=== PATIENT | female | born 1965 | race Caucasian/White ===

== ENCOUNTER 2018-02-02 19:10 | Inpatient (IN) | payer BC, OTHER ==
[2018-02-02] MEDS ORDERED: Nitroglycerin 2% OINT* 1 GM PAK TOPICAL ONE (19:46)
[2018-02-02] MEDS ORDERED: Diltiazem IV* 5 MG/ML 5 ML VIAL (for loading dose/IV Push) (25 MG) IV SLOW PU ONE (19:47)
--- NOTE | 2018-02-02 19:56 | RAD ---
Indication: Chest pain since last night. Comparison: November 02, 2015 Technique: Upright AP 1944 hours Report: Accounting for superimposed soft tissues the lungs and pleural spaces are clear. Negative for pneumothorax. Upper normal heart size accounting for portable AP technique. Unremarkable central pulmonary vasculature and mediastinal contours. IMPRESSION: No evidence for acute intrathoracic disease.
[2018-02-02 20:10] LABS: ABS Basophils 0.1 10^3/ul (0-0.2); ABS Eosinophils 0.2 10^3/ul (0-0.6); ABS Lymphocytes 2.2 10^3/ul (1.0-4.8); ABS Monocytes 0.5 10^3/ul (0-0.8); ABS Neutrophils 3.8 10^3/ul (1.5-7.7); ABS Nucleated RBC 0 10^3/ul; Eosinophil % 2.3 % (0-6); Hematocrit 39 % (35-47); Hemoglobin 13.6 g/dl (12.0-16.0); Lymphocyte % 32.3 % (25-47); Mean Corpuscular HGB Conc 35 g/dl (31-36); Mean Corpuscular Hemoglobin 31 pg (27-31); Mean Corpuscular Volume 88 fL (80-97); Mean Platelet Volume 7.8 um3 (7.4-10.4); Nucleated Red Blood Cells % 0.1; Platelet Count 273 10^3/ul (150-450); Red Blood Count 4.47 10^6/ul (4.0-5.4); Red Cell Distribution Width 14 % (10.5-15); White Blood Count 6.8 10^3/ul (3.5-10.8)
[2018-02-02 20:30] LABS: EGFR Non-African American 69.7 (>60)
[2018-02-02] MEDS ORDERED: Iohexol 350* (CONTRAST) 500 ML MDV IV ONE (20:38)
--- NOTE | 2018-02-02 21:25 | RAD ---
INDICATION: Chest pain radiating into the back. Evaluate aorta. COMPARISON: Chest radiograph of the same date. TECHNIQUE: Multidetector CT images were obtained from the lung apices to the ischial tuberosities with 129 mL Omnipaque 350 IV contrast. No oral contrast administered. Multiplanar reformation including maximum intensity projection and 3-D arterial volume rendering. CHEST REPORT: Negative for alveolar consolidation, focal pulmonary lesions, pleural effusions, pneumothorax. Negative for thoracic lymphadenopathy, cardiomegaly, or pericardial effusion. The thoracic aorta measures 3.0 cm at the root, 4.1 cm diameter at the ascending segment at the level of the main pulmonary artery, 4.2 cm at the proximal arch, 2.6 cm at the distal arch, and 2.1 cm at the distal descending segment. Negative for dissection of the thoracic aorta. Unremarkable main pulmonary arteries. Negative for thoracic fractures or suspicious focal osseous lesions. CHEST IMPRESSION: Mildly ectatic thoracic aorta measuring up to 4.2 cm maximum diameter at the proximal arch. Negative for dissection of the thoracic aorta. ABDOMEN PELVIS REPORT: Arterial phase of enhancement limits assessment of the abdominal viscera. Unremarkable liver, gallbladder, pancreas, spleen. Small splenule adjacent to the anterior inferior margin of the spleen. Negative for CT abnormality of the upper GI, small bowel, or infra cecal appendix. Unremarkable colon. Negative for ascites, free air, hernias. Normal adrenal glands. Unremarkable kidneys with symmetric arterial phase enhancement. No focal renal lesions or hydronephrosis. Unremarkable nondilated ureters and distended urinary bladder as well as the uterus and adnexal regions. Gas noted at the vaginal cuff. Negative for lymphadenopathy. Normal diameter abdominal aorta and iliac arteries. Negative for arterial dissection. Negative for stenosis of the visceral arteries. Physiologic distention of the IVC. Negative for retroperitoneal hematoma. Negative for lumbar sacral spine or pelvic fracture or suspicious focal osseous lesions. ABDOMEN PELVIS IMPRESSION: Negative for aneurysm or dissection of the abdominal aorta. No acute abdominal pelvic pathologic process evident.
--- NOTE | 2018-02-02 22:20 | HP ---
H&P (Free Text) History and Physical: PCP: Waldo Rosas MD Date/Time: 02/02/2018 0280 CC: chest pain HPI: Mrs Webster is a 52YO female HX HTN & morbid obesity who awoke last night around 0100 with chest pain, not certain if she awoke because of pain. She describes it as sharp across L & R chest anteriorly and radiating into the back. There were palpitations, but no SOB, N/V, sweats, or light-headedness. No cough, congestion, F/C, diarrhea, or other issues. The pain lasted ~3 hours before subsiding and letting her sleep. Upon awakening this AM, the discomfort was minimal, but present and continuous throughout the day. It was better sitting upright, worse lying supine. No history of similar. 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; full code status FamHx: Mother: passed at 76 w/ DM2; Father: alive at 77 w/ HTN; Brother: passed at 57 2nd CAD/CA w/ DM2 ROS: as above, otherwise reviewed and all were negative vitals: Vital Signs Temp 37.1 C 02/02/18 19:21 Pulse 90 02/02/18 21:03 Resp 16 02/02/18 20:30 BP 157/103 02/02/18 20:30 Pulse Ox 98 02/02/18 21:03 Intake & Output 02/01/18 02/02/18 02/02/18 23:59 11:59 23:59 Weight 120.202 kg Constitutional: NAD, normally developed, morbidly obese white female HEENM: atraumatic; sclera/conjunctiva: anicteric/clear; hearing: clinically intact; oropharynx: clear, mucosa moist Neck: soft tissue: non-tender; thyroid: normal Pulmonary: clear to auscultation bilaterally, good aeration, no accessory muscle use CV: RR/RR, normal S1S2, no carotid bruit, no jugular venous distention, 2+ B DP/ PT, no edema Abdominal: soft, non-distended, non-tender, no rebound/guarding/rigidity, normoactive bowel sounds, no hepatosplenomegaly or masses, no costovertebral angle tenderness Musculoskeletal: general: grossly intact, no tenderness to palpation Integumental: normal appearance and texture of exposed skin Psychiatric orientation: AA&O to PPS affect: calm mood: cooperative eye contact: good content: reliable responses: timely insight: fair Testing: Lab Results 02/02/18 02/02/18 02/02/18 Range/Units 19:57 19:57 19:57 WBC 6.8 (3.5-10.8) 10^3/ul RBC 4.47 (4.0-5.4) 10^6/ul Hgb 13.6 (12.0-16.0) g/dl Hct 39 (35-47) % MCV 88 (80-97) fL MCH 31 (27-31) pg MCHC 35 (31-36) g/dl RDW 14 (10.5-15) % Plt Count 273 (150-450) 10^3/ul MPV 7.8 (7.4-10.4) um3 Neut % (Auto) 56.3 (38-83) % Lymph % (Auto) 32.3 (25-47) % Logan % (Auto) 8.0 H (0-7) % Eos % (Auto) 2.3 (0-6) % Baso % (Auto) 1.1 (0-2) % Absolute Neuts (auto) 3.8 (1.5-7.7) 10^3/ul Absolute Lymphs (auto) 2.2 (1.0-4.8) 10^3/ul Absolute Monos (auto) 0.5 (0-0.8) 10^3/ul Absolute Eos (auto) 0.2 (0-0.6) 10^3/ul Absolute Basos (auto) 0.1 (0-0.2) 10^3/ul Absolute Nucleated RBC 0 10^3/ul Nucleated RBC % 0.1 Sodium 141 (139-145) mmol/L Potassium 3.6 (3.5-5.0) mmol/L Chloride 104 (101-111) mmol/L Carbon Dioxide 27 (22-32) mmol/L Anion Gap 10 (2-11) mmol/L BUN 19 (6-24) mg/dL Creatinine 0.85 (0.51-0.95) mg/dL Est GFR ( Amer) 89.6 (>60) Est GFR (Non-Af Amer) 69.7 (>60) BUN/Creatinine Ratio 22.4 H (8-20) Glucose 112 H (70-100) mg/dL Lactic Acid 1.7 (0.5-2.0) mmol/L Calcium 9.6 (8.6-10.3) mg/dL Total Bilirubin 0.30 (0.2-1.0) mg/dL AST 16 (13-39) U/L ALT 22 (7-52) U/L Alkaline Phosphatase 85 (34-104) U/L Troponin I 0.01 (<0.04) ng/mL Total Protein 6.7 (6.4-8.9) g/dL Albumin 4.0 (3.2-5.2) g/dL Globulin 2.7 (2-4) g/dL Albumin/Globulin Ratio 1.5 (1-3) ECG, personally reviewed: AFIB rate 131, no ischemia CXR, personally reviewed: IMPRESSION: No evidence for acute intrathoracic disease. CTA chest/abd/pel, personally reviewed: CHEST IMPRESSION: Mildly ectatic thoracic aorta measuring up to 4.2 cm maximum diameter at the proximal arch. Negative for dissection of the thoracic aorta. ABDOMEN PELVIS IMPRESSION: Negative for aneurysm or dissection of the abdominal aorta. No acute abdominal pelvic pathologic process evident. Impression: 52F HX HTN, morbid obesity presents with atypical chest pain for R/ O ACS & new onset AFIB/RVR DIAGNOSIS & PLAN Primary AFIB/RVR : currently in NSR : additional metoprolol IR 25mg x1 in ED : ECHO in AM to r/o valvular disease : [id number] 2, recommend long-term anticoagulation : heparin GTT : supportive care atypical chest pain : telemetry : trend troponin : aspirin : metoprolol : exercise NST in AM : consider cardiology consult in AM pending above results : supplemental oxygen Secondary HTN : continue metoprolol XL 50mg : hold clonidine OAB : continue daifenacin GERD : continue omeprazole allergic rhinitis : continue montelukast Admission Rational: observation for new onset AFIB/RVR & r/o ACS DVTp: heparin GTT Code Status: full HCP:
[2018-02-02] MEDS ORDERED: Aspirin 81 mg CHEW TAB* 81 MG TAB.CHEW PO ONE (23:00)
[2018-02-02] MEDS ORDERED: Heparin DRIP 25,000 UNITS(*) 25,000 UNITS/500 ML BAG IVPB SCH (23:00)
[2018-02-02] MEDS ORDERED: Ondansetron INJ* 2 MG/ML VIAL IV PRN (23:00)
[2018-02-02] MEDS ORDERED: CMCS: Melatonin (NF) 3 MG TAB PO PRN (23:00)
[2018-02-02] MEDS ORDERED: Metoprolol Tartrate TAB* 25 MG ONE (23:17)
[2018-02-02] MEDS: NS 0.9% 1000 ML* 1,000 ML IV SCH (23:48)
[2018-02-03 00:59] LABS: ABS Basophils 0.1 10^3/ul (0-0.2); ABS Eosinophils 0.2 10^3/ul (0-0.6); ABS Lymphocytes 2.4 10^3/ul (1.0-4.8); ABS Monocytes 0.6 10^3/ul (0-0.8); ABS Nucleated RBC 0 10^3/ul; Eosinophil % 2.2 % (0-6); Hematocrit 36 % (35-47); Hemoglobin 12.4 g/dl (12.0-16.0); Lymphocyte % 32.7 % (25-47); Mean Corpuscular HGB Conc 34 g/dl (31-36); Mean Corpuscular Hemoglobin 30 pg (27-31); Mean Corpuscular Volume 88 fL (80-97); Mean Platelet Volume 7.6 um3 (7.4-10.4); Nucleated Red Blood Cells % 0.1; Platelet Count 254 10^3/ul (150-450); Red Cell Distribution Width 14 % (10.5-15); White Blood Count 7.2 10^3/ul (3.5-10.8)
[2018-02-03] MEDS ORDERED: Heparin VIAL(*) 5000 UNITS/ML VIAL (FIVE THOUSAND) IV SCH (01:00)
[2018-02-03 01:17] LABS: INR 0.94 (0.77-1.02)
[2018-02-03 01:18] LABS: EGFR Non-African American 63.6 (>60)
[2018-02-03] MEDS ORDERED: Perflutren Lipid Microsphere* 3 ML VIAL ONE (07:54)
[2018-02-03] MEDS ORDERED: amLODIPine TAB* 5 MG PO ONE (08:52)
--- NOTE | 2018-02-03 08:56 | ECHO ---
Patient: KIZZY BARRAZA [facility] Rec#: [id number] : 1965 Date: 02/03/2018 Age: 52y Height: 170.18 cm / 67.0 in Weight: 120.2 kg / 264.9 lbs Sex: F BSA: 2.28 Room#: 453 Admit Date#: 02/02/2018 Type: Inpatient Referring: Evans Muir MD Reading: Jennifer Macias MD Monitor Tech: Elizabeth Williamson RDCS CC: Saray Rosas MD Transthoracic Echocardiogram Indication: Atrial fibrillation BP: 157/93 HR: 79 Rhythm: A-Fib Findings History: MO and HTN. Technical Comments: The study is technically difficult. The study is technically limited due to patient body habitus. Completed at 0840. Left Ventricle: The left ventricular chamber size is normal. Mild concentric left ventricular hypertrophy is observed. There is mildly decreased left ventricular systolic function. The estimated ejection fraction is 50-55%. TDS and limited. Endocardium not well visualized. Closer to 50%. The assessment of diastolic function is non-diagnostic. Left Atrium: The left atrium is moderately dilated. Right Ventricle: The right ventricle wall thickness is moderately increased. The right ventricular cavity size is normal. The right ventricular global systolic function is low normal. Right Atrium: The right atrium is moderately dilated. Aortic Valve: The aortic valve is trileaflet. There is no evidence of aortic valve thickening. There is no evidence of aortic regurgitation. There is no evidence of aortic stenosis. Mitral Valve: The mitral valve leaflets do not appear thickened. There is a trace of mitral regurgitation. There is no evidence of mitral stenosis. Tricuspid Valve: The tricuspid valve leaflets are normal. There is a physiologic tricuspid regurgitation. Unable to estimate the right ventricular systolic pressure. There is no tricuspid stenosis. Pulmonic Valve: The pulmonic valve structure is not well visualized. There is no evidence of pulmonic regurgitation. There is no pulmonic stenosis. Pericardium: There is no significant pericardial effusion. A pericardial fat pad is visualized. Aorta: There is no dilatation of the ascending aorta. There is no dilatation of the aortic arch. The aortic root is normal in size. Pulmonary Artery: The main pulmonary artery is not well visualized. Venous: The inferior vena cava appears normal in size. There is a greater than 50% respiratory change in the inferior vena cava dimension. Contrast: Definity was used to optimize study. 4 mL of diluted Definity was utilized. Intravenous contrast was used to enhance endocardial border definition. Summary: There was not any prior study for comparison. Conclusions The left ventricular chamber size is normal. Mild concentric left ventricular hypertrophy is observed. The estimated ejection fraction is 50-55%. TDS and limited. Endocardium not well visualized. Closer to 50%. The assessment of diastolic function is non-diagnostic. The left atrium is moderately dilated. The right atrium is moderately dilated. There is a trace of mitral regurgitation. There is a physiologic tricuspid regurgitation. Measurements Name Value Normal Range RVIDd (AP) 2D 3.3 cm (0.9 - 2.6) RVDdMajor (2D) 4.1 cm (2.2 - 4.4) RVAW (2D) 1 cm (0.2 - 0.5) RAd ISD 4CH 5.8 cm (3.4 - 4.9) RA (A4C)W 5 cm (2.9 - 4.6) IVSd (2D) 1.1 cm (0.6 - 1) LVPWd (2D) 1.1 cm (0.6 - 1) LVIDd (2D) 5.2 cm (3.6 - 5.4) LVIDs (2D) 3.6 cm - LV FS (2D) 31 % (25 - 45) Aortic Annulus 3.3 cm (1.4 - 2.6) Ao root diameter (2D) 2.1 cm (2.1 - 3.5) Ascending Ao 3.4 cm (2.1 - 3.4) Aortic arch 3 cm (1.8 - 3.4) LA dimension (AP) 2D 4.3 cm (2.3 - 3.8) LAd ISD 4CH 6.1 cm (2.9 - 5.3) LA ISD 4CH W 4.4 cm (2.5 - 4.5) Name Value Normal Range LA ESV SP 4CH (A/L) 91 ml - LA ESV SP 2CH (A/L) 100 ml - LA ESV BP (A/L) 99 ml - LA ESV BP (A/L) index 43 ml/m2 - LA ESV SP 4CH (MOD) 83 ml - LA ESV SP 2CH (MOD) 97 ml - Name Value Normal Range MV E-wave Vmax 0.76 m/sec - MV deceleration time 175.6 msec - MV A-wave Vmax 0.62 m/sec - MV E:A ratio 1.24 ratio - LV septal e' Vmax 0.05 m/sec - LV lateral e' Vmax 0.07 m/sec - LV E:e' septal ratio 15.2 ratio - LV E:e' lateral ratio 10.86 ratio - Name Value Normal Range AV Vmax 1.03 m/sec - AV VTI 22.93 cm - AV peak gradient 4.26 mmHg - AV mean gradient 2.5 mmHg - LVOT Vmax 0.94 m/sec - LVOT VTI 19.56 cm - LVOT peak gradient 3.56 mmHg - LVOT mean gradient 1.97 mmHg - MATTHEW Vmax 0.66 m/sec - Name Value Normal Range IVC diameter 2.1 cm - Name Value Normal Range PV Vmax 0.69 m/sec - PV peak gradient 1.97 mmHg -
[2018-02-03] MEDS ORDERED: Metoprolol Succinate XL TAB* 50 MG PO SCH (09:00)
[2018-02-03] MEDS ORDERED: Metoprolol Tartrate TAB* 25 MG ONE (11:49)
[2018-02-03] MEDS ORDERED: Metoprolol Tartrate IV* 1 MG/ML 5 ML VIAL IV PRN (12:48)
[2018-02-03] MEDS ORDERED: Metoprolol Tartrate IV* 1 MG/ML 5 ML VIAL ONE (12:51)
[2018-02-03] MEDS ORDERED: Labetalol IV* 5 MG/ML 20 ML VIAL IV PUSH PRN ×2 (12:52→15:37)
[2018-02-03] MEDS ORDERED: Labetalol IV* 5 MG/ML 20 ML VIAL ONE (12:55)
--- NOTE | 2018-02-03 13:17 | RAD ---
Edited for charges. INDICATION: Chest pain. COMPARISON: There are no prior studies available for comparison. Technique: A single day myocardial perfusion stress study was performed. Initially a resting study was performed. The patient was given an intravenous injection of 10.7 mCi of technetium 99m tetrofosmin and and the heart was imaged in multiple projections. The patient returned later in the day and under the direction of Dr. Thorpe, the patient was exercised to a peak heart rate of 145 beats per minute which was 87% of the maximum predicted heart rate. Subsequently the patient was given intravenous injection of 25.9 mCi of technetium 99m tetrofosmin and the heart was imaged in multiple projections. Images were reconstructed in the axial, sagittal and coronal planes and in a 3- D format. FINDINGS: There is mild diffuse decreased wall motion with more focal decreased wall motion at the cardiac apex. The left ventricular ejection fraction is calculated to be 56%. Review of the images demonstrates mild decreased activity in the anterior wall and apex which appears similar on the post exercise and resting images. No other focal abnormalities are seen. IMPRESSION: THERE IS MILD DECREASED WALL MOTION WHICH IS MOST PROMINENT AT THE CARDIAC APEX WITH MILD DECREASED ACTIVITY IN THE ANTERIOR WALL AND APEX ON BOTH THE POST EXERCISE AND RESTING IMAGES SUGGESTING THE POSSIBILITY OF AN INFARCT. THERE IS NO EVIDENCE FOR ISCHEMIA. ASSESSMENT: Low risk. Based on imaging criteria from ACC/AHA 2002 Guideline Update for the Management of Patients With Chronic Stable Angina Table 23. Noninvasive Risk Stratification. MTDD
[2018-02-03] MEDS: DARIFENACIN 7.5 MG PO SCH (14:15)
[2018-02-03] MEDS: Omeprazole CAP* 20 MG PO SCH (14:16)
[2018-02-03] MEDS: Docusate CAP* 100 MG PO SCH ×2 (14:16→20:36)
[2018-02-03] MEDS: Montelukast Sodium TAB* 10 MG PO SCH (14:16)
[2018-02-03] MEDS: NS 0.9% 1000 ML* 1,000 ML IV SCH (15:43)
--- NOTE | 2018-02-03 18:20 | PN ---
Subjective Date of Service: 02/03/18 Interval History: Patient seen and examined. Discussed stress results (low risk), but BP remains elevated. Responding to labetolol, asymptomatic. Denies chest pain, no SOB, no further complaints. Family at bedside. Objective Active Medications: Acetaminophen (Tylenol Tab*) 650 mg PO Q6H PRN PRN Reason: FEVER/PAIN Darifenacin (Enablex(Nf)) 7.5 mg PO DAILY [facility] Last Admin: 02/03/18 14:15 Dose: Not Given Docusate Sodium (Colace Cap*) 200 mg PO BID [facility] Last Admin: 02/03/18 14:16 Dose: Not Given Heparin Sodium (Porcine) (Heparin Vial(*)) 0 units IV .PER PROTOCOL [facility] PRN Reason: Protocol Last Admin: 02/03/18 00:29 Dose: 5,950 units Heparin Sodium/Dextrose (Heparin Drip 25,000 Units(*)) 25,000 units in 500 mls @ 0 mls/hr IVPB PER RATE [facility]; Per Protocol PRN Reason: Protocol Last Admin: 02/03/18 00:29 Dose: 26 mls/hr Sodium Chloride (Ns 0.9% 1000 Ml*) 1,000 mls @ 75 mls/hr IV PER RATE [facility] Last Admin: 02/03/18 15:43 Dose: 75 mls/hr Labetalol HCl (Trandate Iv*) 10 mg IV PUSH Q4H PRN PRN Reason: BLOOD PRESSURE Last Admin: 02/03/18 15:43 Dose: 10 mg Melatonin (Melatonin (Nf)) 3 mg PO BEDTIME PRN; Protocol PRN Reason: Sleep Metoprolol Succinate (Toprol Xl Tab*) 100 mg PO DAILY [facility] Montelukast Sodium (Singulair Tab*) 10 mg PO DAILY [facility] Last Admin: 02/03/18 14:16 Dose: Not Given Omeprazole (Prilosec Cap*) 20 mg PO DAILY [facility] Last Admin: 02/03/18 14:16 Dose: Not Given Ondansetron HCl (Zofran Inj*) 4 mg IV Q6H PRN PRN Reason: NAUSEA Vital Signs - 8 hr 02/03/18 02/03/18 02/03/18 12:47 13:48 15:09 Temperature 98.2 F Pulse Rate 81 Respiratory 14 Rate Blood Pressure 235/128 148/98 198/103 (mmHg) O2 Sat by Pulse 97 Oximetry 02/03/18 16:07 Temperature Pulse Rate 77 Respiratory Rate Blood Pressure 137/77 (mmHg) O2 Sat by Pulse Oximetry Oxygen Devices in Use Now: None Appearance: Alert, NAD Ears/Nose/Mouth/Throat: NL Teeth, Lips, Gums Neck: Trachea Midline Respiratory: Symmetrical Chest Expansion and Respiratory Effort, Clear to Auscultation Cardiovascular: NL Sounds; No Murmurs; No JVD, RRR, No Edema Extremities: No Edema Skin: No Rash or Ulcers Neurological: Alert and Oriented x 3, NL Sensation, NL Gait Nutrition: Taking PO's Result Diagrams: 02/03/18 00:54 02/03/18 00:54 Assess/Plan/Problems-Billing Assessment: - Patient Problems (1) Chest pain Code(s): R07.9 - CHEST PAIN, UNSPECIFIED SNOMED Code(s): 55934176 Comment: - Likley r/t hypertension and afib - Currently in RSR - Will stop heparin drip (2) Atrial fib/flutter, transient Code(s): MFO6654 - SNOMED Code(s): 837158256 Comment: - Resolved after cardizem push and drip - Will DC heparin - Will need to follow up outpatient with cardio (3) Accelerated hypertension Code(s): I10 - ESSENTIAL (PRIMARY) HYPERTENSION SNOMED Code(s): 87999350 Comment: - Increase BB tomorrow, had 50mg metoprolol today - Responding well to labetolol PRN rather than lopressor - Monitor tonight, may need med titration in the AM - May consult cardiology if any acute changes or if BP continues to be refractory Status and Disposition: Remain inpatient, likely dispo home tomorrow
[2018-02-03] MEDS: Acetaminophen TAB* 325 MG PO PRN (20:36)
[2018-02-03] MEDS ORDERED: Metoprolol Tartrate TAB* 25 MG PO ONE (23:02)
[2018-02-04] MEDS: Labetalol IV* 5 MG/ML 20 ML VIAL IV PUSH PRN ×2 (00:40→06:29)
[2018-02-04] MEDS: DARIFENACIN 7.5 MG PO SCH (07:58)
[2018-02-04] MEDS: Omeprazole CAP* 20 MG PO SCH (07:59)
[2018-02-04] MEDS: Docusate CAP* 100 MG PO SCH ×2 (07:59→19:54)
[2018-02-04] MEDS: Metoprolol Succinate XL TAB* 100 MG PO SCH (07:59)
[2018-02-04] MEDS: Montelukast Sodium TAB* 10 MG PO SCH (08:00)
[2018-02-04] MEDS: Hydrochlorothiazide TAB* 25 MG PO SCH (08:00)
--- NOTE | 2018-02-04 10:56 | ED ---
Eddi aLu Nilda, scribed for Judah Everett MD on 02/02/18 at 1951 . HPI Chest Pain - HPI Summary HPI Summary: This patient is a 52 year old F BIBA accompanied by family with a chief complaint of waking up with constant CP that radiated to back at 0100 this morning. Pt states she thought she had GERD because of having [place] food at noon the previous day. Pt went to [address] [place] [address] and was found to have new onset A- fib, per triage note. The patient rates the dull pain 1/10 in severity. Symptoms aggravated and alleviated by nothing. Patient denies SOB and cough. Pt states shes been on menopause for the past 2 years. Pt notes she was given aspirin in EMS (1) and clinic (4) [employer]. - History of Current Complaint Chief Complaint: EDChestPainROMI Time Seen by Provider: 02/02/18 19:25 Hx Obtained From: Patient Hx Last Menstrual Period: 08/2015 Onset/Duration: Started Hours Ago, Still Present Timing: Constant Current Severity: Mild Pain Intensity: 1 Pain Scale Used: 0-10 Numeric Chest Pain Location: Diffuse Chest Pain Radiates: Yes Chest Pain Radiates To:: Back Character: Dull/Aching Aggravating Factor(s): Nothing Alleviating Factor(s): Nothing Associated Signs and Symptoms: Positive: Other: - CP; negative SOB and cough - Allergy/Home Medications Allergies/Adverse Reactions: Allergies Allergy/AdvReac Type Severity Reaction Status Date / Time No Known Allergies Allergy Verified 11/02/15 16:11 Home Medications: Home Medications Darifenacin(NF) [Enablex(NF)] 7.5 mg PO DAILY 02/02/18 [History Confirmed ] Metoprolol Tartrate TAB* [Lopressor TAB*] 50 mg PO DAILY 02/02/18 [History Confirmed 02/02/18] Montelukast Sodium TAB* [Singulair TAB*] 10 mg PO DAILY 02/02/18 [History Confirmed 02/02/18] Omeprazole CAP* [Prilosec CAP* 20 MG] 20 mg PO DAILY 02/02/18 [History Confirmed 02/02/18] cloNIDine TAB* [Catapres 0.1 MG TAB*] 0.1 mg PO DAILY 02/02/18 [History Confirmed 02/02/18] PMH/Surg Hx/FS Hx/Imm Hx Cardiovascular History: Reports: Hx Hypertension Sensory History: Denies: Hx Legally Blind Infectious Disease History: No Infectious Disease History: Denies: Traveled Outside the [place] in Last 30 Days - Family History Known Family History: Positive: Cardiac Disease - [place] brother age 57 y.o, Diabetes, Other - cancer - Social History Alcohol Use: Occasionally Substance Use Type: Reports: None Hx Tobacco Use: No Smoking Status (MU): Never Smoked Tobacco Review of Systems Negative: Fever, Chills Negative: Erythema Negative: Sore Throat Positive: Chest Pain - radiates to back Negative: Shortness Of Breath, Cough Negative: Abdominal Pain, Vomiting, Nausea Negative: dysuria, hematuria Negative: Myalgia, Edema Negative: Rash Neurological: Other - negative dizziness All Other Systems Reviewed And Are Negative: Yes Physical Exam - Summary Physical Exam Summary: Constitutional: Well-developed, Well-nourished, Alert. (-) Distressed Skin: Warm, Dry HENT: Normocephalic; Atraumatic Eyes: Conjunctiva normal Neck: Musculoskeletal ROM normal neck. (-) JVD, (-) Stridor, (-) Tracheal deviation Cardio: Rapid irregular hearbeat. Heart sounds normal; Intact distal pulses; The pedal pulses are 2+ and symmetric. Radial pulses are 2+ and symmetric. (-) Murmur Pulmonary/Chest wall: Effort normal. (-) Respiratory distress, (-) Wheezes, (-) Rales Abd: Soft, (-) Tenderness, (-) Distension, (-) Guarding, (-) Rebound Musculoskeletal: (-) Edema Lymph: (-) Cervical adenopathy Neuro: Alert, Oriented x3 Psych: Mood and affect Normal Triage Information Reviewed: Yes Vital Signs On Initial Exam: Initial Vitals Temp Pulse Resp BP Pulse Ox 98.8 F 128 18 173/137 96 02/02/18 19:21 02/02/18 19:21 02/02/18 19:21 02/02/18 19:21 02/02/18 19:21 Vital Signs Reviewed: Yes Diagnostics - Vital Signs Vital Signs Temp Pulse Resp BP Pulse Ox 02/02/18 19:21 98.8 F 128 18 173/137 96 - Laboratory Result Diagrams: 02/02/18 19:57 02/02/18 19:57 Lab Statement: Any lab studies that have been ordered have been reviewed, and results considered in the medical decision making process. - Radiology CXR Radiology Interpretation Completed By: Radiologist - CXR, per radiologist, reveals no evidence for acute intrathoracic disease. Dr. Everett has reviewed this radiology report. - CT CTA Chest/Abd/Pel CT Interpretation Completed By: Radiologist - Mildly ectatic thoracic aorta measuring up to 4.2 cm maximum diameter at the proximal arch. Negative for dissection of the thoracic aorta. Negative for aneurysm or dissection of the abdominal aorta. No acute abdominal pelvic pathologic process evident. Dr. Everett has reviewed this report. - EKG 1920 Cardiac Rate: Other Rate - 131 bpm EKG Rhythm: Atrial Fibrillation EKG Interpretation: RVR, no STEMI Chest Pain Course/Dx - Course Assessment/Plan: This patient is a 52 year old F BIBA accompanied by family with a chief complaint of waking up with constant CP that radiated to back at 0100 this morning. Pt states she thought she had GERD because of having [place] food at noon the previous day. Pt went to [address] [place] [address] and was found to have new onset A-fib, per triage note. The patient rates the dull pain 1/10 in severity. Symptoms aggravated and alleviated by nothing. Patient denies SOB and cough. Pt states shes been on menopause for the past 2 years. Pt notes she was given aspirin in EMS (1) and clinic (4). An EKG reveals A-fib, 131 bpm, no STEMI, and RVR. CXR, per radiologist, reveals no evidence for acute intrathoracic disease. Dr. Everett has reviewed this radiology report. CTA Chest/Abd/Pel, per radiologist, reveals Mildly ectatic thoracic aorta measuring up to 4.2 cm maximum diameter at. the proximal arch. Negative for dissection of the thoracic aorta. Negative for aneurysm or dissection of the abdominal aorta. No. acute abdominal pelvic pathologic process evident. Dr. Everett has reviewed this report. [8] Dr. Muir (hospitalist) agrees to admit pt. Pt is stable and will be admitted with Dx of CP unspecified and A-Fib with RVR. Pt understands and is agreeable with this plan. - Diagnoses Provider Diagnoses: Chest pain, unspecified, Atrial fibrillation with RVR - Provider Notifications Discussed Care Of Patient With: Evans Muir - hospitalist Time Discussed With Above Provider: 20:58 Instructed by Provider To: Admit As Inpatient Discharge - Sign-Out/Discharge Documenting (check all that apply): Discharge - admit - Discharge Plan Condition: Stable Disposition: ADMITTED TO [facility] Referrals: Saray Rosas MD [Primary Care Provider] - The documentation as recorded by the Eddi barreto Nilda accurately reflects the service I personally performed and the decisions made by , Judah Everett MD.
[2018-02-04] MEDS: Acetaminophen TAB* 325 MG PO PRN (11:21)
[2018-02-04] MEDS ORDERED: Valsartan TAB* 40 MG PO ONE (11:24)
[2018-02-04] MEDS ORDERED: Valsartan TAB* 80 MG ONE (11:33)
[2018-02-04] MEDS ORDERED: hydrALAZINE IV* 20 MG/ML VIAL ONE (11:33)
[2018-02-04] MEDS: hydrALAZINE IV* 20 MG/ML VIAL IV SLOW PU PRN ×2 (11:39→19:55)
--- NOTE | 2018-02-04 11:57 | PN ---
Subjective Date of Service: 02/04/18 Interval History: Patient seen and examined. BP was initially improved last night with a reading of 137/77, however she is having rebound HTN today with mild headache. Denies SOB, no chest pain, no afib. No further complaints. Objective Active Medications: Acetaminophen (Tylenol Tab*) 650 mg PO Q6H PRN PRN Reason: FEVER/PAIN Last Admin: 02/04/18 11:21 Dose: 650 mg Darifenacin (Enablex(Nf)) 7.5 mg PO DAILY [facility] Last Admin: 02/04/18 07:58 Dose: Not Given Docusate Sodium (Colace Cap*) 200 mg PO BID [facility] Last Admin: 02/04/18 07:59 Dose: 200 mg Hydralazine HCl (Apresoline Iv*) 5 mg IV SLOW PU Q6H PRN PRN Reason: SBP>170 or DBP>90 Last Admin: 02/04/18 11:39 Dose: 5 mg Hydrochlorothiazide (Hydrodiuril Tab*) 12.5 mg PO DAILY [facility] Last Admin: 02/04/18 08:00 Dose: 12.5 mg Melatonin (Melatonin (Nf)) 3 mg PO BEDTIME PRN; Protocol PRN Reason: Sleep Metoprolol Succinate (Toprol Xl Tab*) 100 mg PO DAILY [facility] Last Admin: 02/04/18 07:59 Dose: 100 mg Montelukast Sodium (Singulair Tab*) 10 mg PO DAILY [facility] Last Admin: 02/04/18 08:00 Dose: 10 mg Omeprazole (Prilosec Cap*) 20 mg PO DAILY [facility] Last Admin: 02/04/18 07:59 Dose: 20 mg Ondansetron HCl (Zofran Inj*) 4 mg IV Q6H PRN PRN Reason: NAUSEA Vital Signs - 8 hr 02/04/18 02/04/18 02/04/18 04:02 06:30 07:26 Temperature 97.5 F 98.5 F Pulse Rate 76 93 72 Respiratory 16 18 Rate Blood Pressure 179/97 216/119 162/99 (mmHg) O2 Sat by Pulse 98 94 Oximetry 02/04/18 02/04/18 02/04/18 08:00 08:31 08:47 Temperature 97.6 F Pulse Rate 72 Respiratory 16 17 Rate Blood Pressure 177/116 (mmHg) O2 Sat by Pulse 94 97 Oximetry 02/04/18 02/04/18 02/04/18 09:30 10:52 10:59 Temperature 97.1 F 97.7 F Pulse Rate 76 Respiratory 16 18 Rate Blood Pressure 146/98 172/123 190/112 (mmHg) O2 Sat by Pulse 100 Oximetry Oxygen Devices in Use Now: None Appearance: Alert, NAD Eyes: No Scleral Icterus, PERRLA Ears/Nose/Mouth/Throat: NL Teeth, Lips, Gums, Mucous Membranes Moist Neck: NL Appearance and Movements; NL JVP, Trachea Midline Respiratory: Symmetrical Chest Expansion and Respiratory Effort, Clear to Auscultation Cardiovascular: NL Sounds; No Murmurs; No JVD, RRR, No Edema Neurological: Alert and Oriented x 3, NL Gait Nutrition: Taking PO's Result Diagrams: 02/03/18 00:54 02/03/18 00:54 Assess/Plan/Problems-Billing Assessment: This is a 52 year old female that presented to ER with chest pain and transient afib, with low risk stress test but labile, peristent hypertensive urgency - Patient Problems (1) Chest pain Code(s): R07.9 - CHEST PAIN, UNSPECIFIED SNOMED Code(s): 00314710 Comment: - Resolved - Likley r/t hypertension and afib - Currently in RSR (2) Atrial fib/flutter, transient Code(s): LTO1772 - SNOMED Code(s): 569094696 Comment: - Resolved after cardizem push and drip - Will DC heparin - Will need to follow up outpatient with cardio (3) Accelerated hypertension Code(s): I10 - ESSENTIAL (PRIMARY) HYPERTENSION SNOMED Code(s): 13126605 Comment: - Initially responded well to labetolol overnight with increase in metoprolol dose this AM, then had rebound again - Discussed with Dr. Apodaca, recommending ARB and hydralazine - May be renal component? - Continue to watch closely Status and Disposition: Remain inpatient,for medication titration and stabilization.
[2018-02-04] MEDS ORDERED: cloNIDine TAB* 0.1 MG PO ONE (14:07)
[2018-02-05] MEDS: hydrALAZINE IV* 20 MG/ML VIAL IV SLOW PU PRN ×3 (01:17→19:38)
[2018-02-05] MEDS: Metoprolol Succinate XL TAB* 100 MG PO SCH (09:19)
[2018-02-05] MEDS: Montelukast Sodium TAB* 10 MG PO SCH (09:19)
[2018-02-05] MEDS: DARIFENACIN 7.5 MG PO SCH (09:20)
[2018-02-05] MEDS: Docusate CAP* 100 MG PO SCH ×2 (09:20→19:37)
[2018-02-05] MEDS: Hydrochlorothiazide TAB* 25 MG PO SCH (09:20)
[2018-02-05] MEDS: Omeprazole CAP* 20 MG PO SCH (09:38)
[2018-02-05] MEDS: amLODIPine TAB* 5 MG PO SCH (11:45)
[2018-02-05] MEDS ORDERED: Potassium Chloride LIQUID* 20 MEQ PACKET PO ONE (14:53)
[2018-02-05] MEDS ORDERED: amLODIPine TAB* 5 MG PO ONE (15:00)
--- NOTE | 2018-02-05 15:42 | PN ---
Subjective Date of Service: 02/05/18 Interval History: Patient seen and examined. Remains hypertensive. c/o headache on and off since yesterday. Denies chest pain, no SOB, no n/v. Objective Active Medications: Acetaminophen (Tylenol Tab*) 650 mg PO Q6H PRN PRN Reason: FEVER/PAIN Last Admin: 02/04/18 11:21 Dose: 650 mg Amlodipine Besylate (Norvasc Tab*) 5 mg PO DAILY [facility] Last Admin: 02/05/18 11:45 Dose: 5 mg Aspirin (Aspirin 81 Mg Chew Tab*) 81 mg PO DAILY [facility] Darifenacin (Enablex(Nf)) 7.5 mg PO DAILY [facility] Last Admin: 02/05/18 09:20 Dose: Not Given Docusate Sodium (Colace Cap*) 200 mg PO BID [facility] Last Admin: 02/05/18 09:20 Dose: Not Given Hydralazine HCl (Apresoline Iv*) 5 mg IV SLOW PU Q6H PRN PRN Reason: SBP>170 or DBP>90 Last Admin: 02/05/18 11:46 Dose: 5 mg Melatonin (Melatonin (Nf)) 3 mg PO BEDTIME PRN; Protocol PRN Reason: Sleep Metoprolol Succinate (Toprol Xl Tab*) 25 mg PO BID [facility] Montelukast Sodium (Singulair Tab*) 10 mg PO DAILY [facility] Last Admin: 02/05/18 09:19 Dose: 10 mg Omeprazole (Prilosec Cap*) 20 mg PO DAILY [facility] Last Admin: 02/05/18 09:38 Dose: 20 mg Ondansetron HCl (Zofran Inj*) 4 mg IV Q6H PRN PRN Reason: NAUSEA Spironolactone (Aldactone Tab*) 25 mg PO DAILY [facility] Vital Signs - 8 hr 02/05/18 02/05/18 02/05/18 07:44 08:00 11:12 Temperature 97.8 F 97.8 F Pulse Rate 68 72 Respiratory 18 18 16 Rate Blood Pressure 159/91 180/102 (mmHg) O2 Sat by Pulse 96 97 Oximetry 02/05/18 02/05/18 12:50 14:42 Temperature Pulse Rate Respiratory Rate Blood Pressure 186/104 162/88 (mmHg) O2 Sat by Pulse Oximetry Oxygen Devices in Use Now: None Appearance: Alert, NAD Ears/Nose/Mouth/Throat: NL Teeth, Lips, Gums, Mucous Membranes Moist Neck: NL Appearance and Movements; NL JVP, Trachea Midline Respiratory: Symmetrical Chest Expansion and Respiratory Effort, Clear to Auscultation Cardiovascular: NL Sounds; No Murmurs; No JVD, RRR, No Edema Abdominal: NL Sounds; No Tenderness; No Distention Neurological: Alert and Oriented x 3, NL Sensation, NL Gait, NL Muscle Strength and Tone Nutrition: Taking PO's Result Diagrams: 02/03/18 00:54 02/03/18 00:54 Assess/Plan/Problems-Billing Assessment: This is a 52 year old female that presented to ER with chest pain and transient afib, with low risk stress test but labile, peristent hypertensive urgency. - Patient Problems (1) Chest pain Code(s): R07.9 - CHEST PAIN, UNSPECIFIED SNOMED Code(s): 15950604 Comment: - Resolved - Likley r/t hypertension and afib - Currently in RSR (2) Atrial fib/flutter, transient Code(s): FVO5362 - SNOMED Code(s): 741278459 Comment: - Resolved after cardizem push and drip - Heparin DC'd, no indication for anticoagulation at this point, discussed with cardiology (3) Accelerated hypertension Code(s): I10 - ESSENTIAL (PRIMARY) HYPERTENSION SNOMED Code(s): 42349503 Comment: - Cardiology consult appreciated - Had 5.2 sec pause overnight, likely r/t BB - Decreased BB, add norvasc and aldactone as per cardiology - Labs in AM - Continue to watch closely Status and Disposition: Remain inpatient,for medication titration and stabilization. Needs outpatient sleep study for ERWIN and cardio f/u. Counseling and/or Coordination of Care Minutes: coordinated with RN, patient and Dr. Mills
[2018-02-05] MEDS: Spironolactone TAB* 25 MG PO SCH (16:26)
[2018-02-05] MEDS: Aspirin 81 mg CHEW TAB* 81 MG TAB.CHEW PO SCH (16:26)
--- NOTE | 2018-02-05 17:49 | CONS ---
CARDIOLOGY CONSULTATION: DATE OF CONSULT: 02/05/18 REASON FOR EVALUATION: Hypertension, bradycardia, and paroxysmal atrial fibrillation. HISTORY OF PRESENT ILLNESS: This is a very pleasant 52-year-old woman, who was accompanied by her . She has a history of obesity and longstanding hypertension, apparently without adequate control. She did have cough on lisinopril in the past and has cough, which is attributed to sinuses which has persisted over the last few years. She has been on metoprolol 25 mg and clonidine. On the day prior to admission, she went out for [employer] food and afterwards developed sharp chest pain radiating from the substernal area to the back and radiating across the chest, she states sometimes it was sharp, sometimes it was pressure associated with gas and burping. She thought it was indigestion. It went away after a while, but the next day, she has had it persistent to a lesser degree. Because of those symptoms, she called her doctor who told her to go to the emergency room. She went to [facility] and was told she was in AFib with rapid ventricular response and sent to the emergency room where she was treated with IV diltiazem and had resolution of her AFib. Her testing has included echocardiogram performed on 02/02/18, which revealed an EF of 50% to 55%, mildly decreased LV function, not well visualized, moderate LA dilatation, moderate RVH, low normal RV function, trace MR, physiologic TR, mild concentric LVH, right atrium was moderately dilated, and left atrium was moderately dilated. She also had a stress test performed on October 21, which revealed resting blood pressure of 207/135 and hypertensive blood pressure of 244/99. She completed 6 minutes of Liam to 7 METs. No significant EKG changes. She developed PVCs with exercise. She had 1 triplet and a 4- to 5-beat runs of VT. It resolved in mid to late recovery, was felt to have a low to intermediate risk score. She also had imaging, which revealed mild decreased wall motion, most prominent at the apex, decrease activity in the anterior wall and apex which persisted on the resting images which raised the possibility of infarct, would also consider possibility of soft tissue artifact given her obesity. It was decided to continue medical management. She has had somewhat labile blood pressures while she has been here and her beta monserrat has been increased to 100 mg a day started yesterday and today. Overnight, she was noted to have pause of approximately 5 seconds and her metoprolol was being considered for reduction in dose. She also was tried on CPAP last night because of the history of snoring and stopping breathing according to , she was only able to tolerate for 3 hours and did not notice any difference. She denies palpitations, syncope, or near syncope. No exertional chest pain. She states sometimes she will walk for 20 minutes at lunch time and rarely does this. She just drinks usually a wine or two at night and sometimes more in the weekends. She occasionally will have a beer as well. She denied any excessive drinking on the night prior to her symptoms. She denies strokes, mini strokes, rheumatic fever, or murmurs. She has history of hypertension. She reports that her lipids have been well controlled. She denies tobacco use. She does have family history of premature coronary artery disease with brother who with an [place] at 58. PAST MEDICAL HISTORY: Includes: 1. Obesity. 2. Hypertension. 3. Episode of AFib this week. 4. Chest pain of unclear etiology with negative troponins. 5. Gastroesophageal reflux. 6. Allergic rhinitis. PAST SURGICAL HISTORY: Includes tonsillectomy as a child and right strabismus surgery. MEDICATIONS: Include: 1. Enablex 7.5 mg daily. 2. Metoprolol tartrate 50 mg as an outpatient, as an inpatient she is on 100 of succinate. 3. Omeprazole 20 mg a day. 4. Clonidine tabs 0.1 mg daily. Her medications as inpatient include: 1. HydroDIURIL 12.5 mg a day. 2. Melatonin 3 mg at bedtime. 3. Toprol 100 mg a day. 4. Singulair 10 mg a day. 5. Omeprazole 20 mg a day. 6. Zofran 4 mg IV q.6 p.r.n. 7. Enablex 7.5 mg daily. 8. Amlodipine 5 mg first dose given at 11:45 today. 9. Tylenol p.r.n. ALLERGIES: Includes seasonal allergies and cough on LISINOPRIL. FAMILY HISTORY: Includes mother at 76, possibly of CHF. Father is alive at 78. Two sisters alive. One brother who of an [place] at 58. SOCIAL HISTORY: She lives with her and 3 children. 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 REVIEW OF SYSTEMS: Review of systems x10 was negative except as above. She does report occasional dependent edema in the hot weather which resolves with elevation of her legs. PHYSICAL EXAM: She is a well-developed, morbidly obese female, in no apparent distress. No significant JVD. Cardiac Exam: S1, S2. No clear murmurs, gallops, or rubs. No carotid bruits. No JVD. Chest: Clear. No CVAT. Abdomen: Morbidly obese. No hepatosplenomegaly. Femoral pulses intact without bruits. Distal pulses intact. No edema. Motor strength 5/5 bilaterally. Deep tendon reflexes 2/4. Alert and oriented x3. DIAGNOSTIC STUDIES/LAB DATA: Include potassium 3.6 on 02/02/18. BUN 19 and creatinine of 0.85. White count is 7.2, hemoglobin 12.4, hematocrit 36, platelet count 254. CT of the chest on 02/02/18, mild ectatic thoracic aorta up to 4.[address] of abdomen negative. No dissection. EKG from 02/02/18 revealed AFib with rapid ventricular response 130s, poor R- wave progression, and nonspecific ST-T changes. Repeat EKG from 02/03/18, revealed sinus rhythm with a PVC and improvement in the nonspecific ST-T changes. Prior EKG of 11/02/15 revealed what appeared to be sinus rhythm with nonspecific ST changes, poor R-wave progression similar to the most recent EKG. IMPRESSION AND PLAN: My impression at this time is Ms. Webster has obesity; hypertension, difficult to control; episode of atrial fibrillation of unclear etiology; chest pain of unclear etiology; equivocal nuclear echo findings; left ventricular hypertrophy and ectopic ascending aorta consistent with long-term hypertension and hypertensive heart disease. She also has biatrial enlargement. I did discuss with her and her the importance of lifestyle modifications to try to decreased her risk for morbidity and mortality , I explained her obesity, increased risk for diabetes, hypertension, sleep apnea, and atrial fibrillation. I also explained that the atrial fibrillation increases the risk for cerebrovascular accident. Shee also had a significant pause on higher dose of beta monserrat; therefore, we will need to be cautious with the selection of the medications. For the time being I have recommended the followin. I suggested that we add amlodipine, ( she got her first dose earlier today and her blood pressure seems to be improving). 2. We will add Aldactone to her regimen try to better control blood pressure without lowering her potassium excessively. 3. We try to maintain the potassium over 4. 4. We would continue the beta monserrat at a lower dose, perhaps 25 mg b.i.d. of metoprolol succinate( she already received 100mg 4.13 am) 5. I would recommend weight reduction. We discussed strategies for achieving that. 6. I have recommended she limits caffeine and decrease her alcohol. 7. We talked about trying to decrease her calories. 8. We would recommend gently increasing her exercise as tolerated to 20 to 30 minutes of gentle walking each day. 9. She is to follow up with an evaluation for sleep apnea as an outpatient. 10. She is to reduce her caffeine intake. 11. Her CHADS2-VASc score is 2 based on her female gender and hypertension. However, given the isolated episode and unknown etiology of her chest discomfort , I suggested we continue with aspirin for now. We may have to reconsider if she has more frequent episodes. 12. I would also consider an ultrasound of the gallbladder given her risk for cholecystitis. Her chest pain seems less likely to be ischemic, although this can be excluded. At some point, if she has persistent symptoms that are not explained, we will consider cardiac catheterization. [id number]/[facility] #: [id number] JOANNE
--- NOTE | 2018-02-05 19:07 | RAD ---
Indication: Abdominal and chest pain. Comparison: February 02, 2018 CT Technique: RIGHT upper quadrant ultrasound. Report: Appropriate direction flow documented in the portal and hepatic veins. 16.1 cm liver is increased in echogenicity. Tiny subcentimeter subcapsular cyst noted at the LEFT hepatic lobe. No suspicious focal hepatic lesions evident. Negative for intrahepatic biliary dilatation. 3.2 mm common bile duct. Adequately distended gallbladder with normal range 2.7 mm wall is remarkable for a 4 mm intermediate echogenicity structure along the near wall most suspicious for a polyp. Negative for pericholecystic fluid. Negative for sonographic Snowden's sign. The visualized pancreas is echogenic favoring partial fatty replacement. The tail of the pancreas is significantly obscured due to bowel gas. Negative for ascites. 11.1 x 5.9 x 5.6 cm RIGHT kidney is unremarkable. IMPRESSION: 1. Hepatosteatosis. 2. 4 mm probable cholesterol or inflammatory polyp. Gallbladder polyps 6mm or smaller have extremely low risk of malignancy and typically do not warrant follow up. On occasion polyps may actually represent small gallstones adherent to the gallbladder wall at surgery.
[2018-02-05] MEDS ORDERED: Metoprolol Succinate XL TAB* 25 MG PO SCH (21:00)
[2018-02-06 07:05] LABS: EGFR Non-African American 73.7 (>60)
[2018-02-06] MEDS: Docusate CAP* 100 MG PO SCH ×2 (07:21→20:43)
[2018-02-06] MEDS: Spironolactone TAB* 25 MG PO SCH (08:03)
[2018-02-06] MEDS: Montelukast Sodium TAB* 10 MG PO SCH (08:03)
[2018-02-06] MEDS: amLODIPine TAB* 5 MG PO SCH (08:04)
[2018-02-06] MEDS: Aspirin 81 mg CHEW TAB* 81 MG TAB.CHEW PO SCH (08:04)
[2018-02-06] MEDS: Omeprazole CAP* 20 MG PO SCH (08:04)
[2018-02-06] MEDS: Acetaminophen TAB* 325 MG PO PRN ×3 (08:04→21:23)
[2018-02-06] MEDS: Metoprolol Succinate XL TAB* 25 MG PO SCH ×2 (08:04→20:42)
[2018-02-06] MEDS: DARIFENACIN 7.5 MG PO SCH (08:06)
--- NOTE | 2018-02-06 11:43 | PN ---
Subjective Date of Service: 02/06/18 Interval History: Patient reports no complaints this AM other than a mild posterior headache, Denies chest pain or shortness of breath. Denies N/V/D. Reports that she is frustrated with not knowing what is causing her HTN and the amount of time she has been here. Family History: Unchanged from Admission Social History: Unchanged from Admission Past Medical History: Unchanged from Admission Objective Active Medications: Acetaminophen (Tylenol Tab*) 650 mg PO Q6H PRN PRN Reason: FEVER/PAIN Last Admin: 02/06/18 08:04 Dose: 650 mg Amlodipine Besylate (Norvasc Tab*) 5 mg PO DAILY [facility] Last Admin: 02/06/18 08:04 Dose: 5 mg Aspirin (Aspirin 81 Mg Chew Tab*) 81 mg PO DAILY [facility] Last Admin: 02/06/18 08:04 Dose: 81 mg Darifenacin (Enablex(Nf)) 7.5 mg PO DAILY [facility] Last Admin: 02/06/18 08:06 Dose: Not Given Docusate Sodium (Colace Cap*) 200 mg PO BID [facility] Last Admin: 02/06/18 07:21 Dose: Not Given Hydralazine HCl (Apresoline Iv*) 5 mg IV SLOW PU Q6H PRN PRN Reason: SBP>170 or DBP>90 Last Admin: 02/05/18 19:38 Dose: 5 mg Melatonin (Melatonin (Nf)) 3 mg PO BEDTIME PRN; Protocol PRN Reason: Sleep Metoprolol Succinate (Toprol Xl Tab*) 25 mg PO BID [facility] Last Admin: 02/06/18 08:04 Dose: 25 mg Montelukast Sodium (Singulair Tab*) 10 mg PO DAILY [facility] Last Admin: 02/06/18 08:03 Dose: 10 mg Omeprazole (Prilosec Cap*) 20 mg PO DAILY [facility] Last Admin: 02/06/18 08:04 Dose: 20 mg Ondansetron HCl (Zofran Inj*) 4 mg IV Q6H PRN PRN Reason: NAUSEA Spironolactone (Aldactone Tab*) 25 mg PO DAILY [facility] Last Admin: 02/06/18 08:03 Dose: 25 mg Vital Signs - 8 hr 02/06/18 02/06/18 02/06/18 03:42 07:20 07:24 Temperature 98.5 F Pulse Rate 75 85 Respiratory 16 16 Rate Blood Pressure 139/82 145/93 (mmHg) O2 Sat by Pulse 98 Oximetry Oxygen Devices in Use Now: None Appearance: appears comfortable sitting in the chair. Eyes: No Scleral Icterus Ears/Nose/Mouth/Throat: NL Teeth, Lips, Gums, Mucous Membranes Moist Neck: NL Appearance and Movements; NL JVP, Trachea Midline Respiratory: Symmetrical Chest Expansion and Respiratory Effort, Clear to Auscultation Cardiovascular: NL Sounds; No Murmurs; No JVD, RRR, No Edema Abdominal: NL Sounds; No Tenderness; No Distention Extremities: No Edema, No Clubbing, Cyanosis Skin: No Rash or Ulcers Neurological: Alert and Oriented x 3, NL Muscle Strength and Tone Nutrition: Taking PO's Result Diagrams: 02/03/18 00:54 02/06/18 06:30 Assess/Plan/Problems-Billing Assessment: This is a 52 year old female that presented to ER with chest pain and transient afib, with low risk stress test but labile, peristent hypertensive urgency. - Patient Problems (1) Accelerated hypertension Current Visit: Yes Status: Acute Code(s): I10 - ESSENTIAL (PRIMARY) HYPERTENSION SNOMED Code(s): 32624288 Comment: - Cardiology consult appreciated - continue metoprolol at the current dose, and continue aldactone, will increase norvasc and add cozaar as per cardiology - Continue to watch closely- had a brief episode of tachycardia, patient remained asymptomatic, no chest pain or shortness of breath, patient was getting blood at the time of the tachycardia, suspect this is related to the blood draw. (2) Atrial fib/flutter, transient Current Visit: Yes Status: Acute Code(s): [id number] - SNOMED Code(s): 489332582 Comment: - Resolved after cardizem push and drip - Heparin DC'd, no indication for anticoagulation at this point, discussed with cardiology - will continue ASA as per there recommendation (3) Chest pain Current Visit: Yes Status: Acute Code(s): R07.9 - CHEST PAIN, UNSPECIFIED SNOMED Code(s): 84959846 Comment: - Resolved - Likley r/t hypertension and afib - Currently in RSR (4) DVT prophylaxis Current Visit: Yes Status: Acute Code(s): GJA0820 - SNOMED Code(s): 569453941 Comment: ambulation (5) Full code status Current Visit: Yes Status: Acute Code(s): Z78.9 - OTHER SPECIFIED HEALTH STATUS SNOMED Code(s): 035117183 Status and Disposition: Remain inpatient,for medication titration and stabilization. Needs outpatient sleep study for ERWIN and cardio f/u.
[2018-02-06] MEDS: hydrALAZINE IV* 20 MG/ML VIAL IV SLOW PU PRN (12:06)
[2018-02-06] MEDS ORDERED: amLODIPine TAB* 5 MG PO SCH (13:22)
[2018-02-06] MEDS: Losartan TAB* 25 MG PO SCH (13:39)
[2018-02-07] MEDS: Docusate CAP* 100 MG PO SCH (07:58)
[2018-02-07] MEDS: DARIFENACIN 7.5 MG PO SCH (07:58)
[2018-02-07 08:06] VITALS: BP 126/83
[2018-02-07] MEDS: Metoprolol Succinate XL TAB* 25 MG PO SCH (08:07)
[2018-02-07] MEDS: Omeprazole CAP* 20 MG PO SCH (08:07)
[2018-02-07] MEDS: Montelukast Sodium TAB* 10 MG PO SCH (08:07)
[2018-02-07] MEDS: Losartan TAB* 25 MG PO SCH (08:07)
[2018-02-07] MEDS: Spironolactone TAB* 25 MG PO SCH (08:08)
[2018-02-07] MEDS: Aspirin 81 mg CHEW TAB* 81 MG TAB.CHEW PO SCH (08:09)
[2018-02-07] MEDS: Acetaminophen TAB* 325 MG PO PRN (08:09)
--- NOTE | 2018-02-07 12:56 | PN ---
Subjective Date of Service: 02/07/18 Interval History: c/o mild headache, reports that it is related to the bed, Reports that she is feeling well today, denies any dizziness or being lightheaded. Denies chest pain or shortness of breath. Family History: Unchanged from Admission Social History: Unchanged from Admission Past Medical History: Unchanged from Admission Objective Vital Signs - 8 hr 02/07/18 02/07/18 06:40 08:01 Temperature 98.2 F Pulse Rate 80 Respiratory 18 16 Rate Blood Pressure 126/83 (mmHg) O2 Sat by Pulse 98 Oximetry Oxygen Devices in Use Now: None Appearance: alert and calm sitting in the chair, appers comfortable Eyes: PERRLA Ears/Nose/Mouth/Throat: NL Teeth, Lips, Gums, Clear Oropharnyx, Mucous Membranes Moist Neck: NL Appearance and Movements; NL JVP, Trachea Midline Respiratory: Symmetrical Chest Expansion and Respiratory Effort, Clear to Auscultation Cardiovascular: NL Sounds; No Murmurs; No JVD, No Edema Abdominal: NL Sounds; No Tenderness; No Distention Extremities: No Edema, No Clubbing, Cyanosis Skin: No Rash or Ulcers, No Nodules or Sclerosis Neurological: Alert and Oriented x 3, NL Gait, NL Muscle Strength and Tone Result Diagrams: 02/03/18 00:54 02/06/18 06:30 Assess/Plan/Problems-Billing Assessment: This is a 52 year old female that presented to ER with chest pain and transient afib, with low risk stress test but labile, peristent hypertensive urgency. - Patient Problems (1) Accelerated hypertension Status: Acute Code(s): I10 - ESSENTIAL (PRIMARY) HYPERTENSION SNOMED Code(s) : 16326591 Comment: - Cardiology consult appreciated - continue metoprolol at the current dose, and continue aldactone, will increase norvasc and add cozaar as per cardiology- medication changes have improved hypertension- BP this AM- 126/83- denies dizziness or lightheadedness. states that she feels well. -spoke with cardiology - can discharge with current medications - follow up with cardiology in 2 weeks - Continue to watch closely- had a brief episode of tachycardia, patient remained asymptomatic, no chest pain or shortness of breath, patient was getting blood at the time of the tachycardia, suspect this is related to the blood draw. (2) Atrial fib/flutter, transient Status: Acute Code(s): LBV7208 - SNOMED Code(s): 189515146 Comment: - Resolved after cardizem push and drip - Heparin DC'd, no indication for anticoagulation at this point, discussed with cardiology - will continue ASA as per there recommendation (3) Chest pain Status: Acute Code(s): R07.9 - CHEST PAIN, UNSPECIFIED SNOMED Code(s): 24988174 Comment: - Resolved - Likley r/t hypertension and afib - Currently in RSR (4) DVT prophylaxis Status: Acute Code(s): GFG0910 - SNOMED Code(s): 150512147 Comment: ambulation (5) Full code status Status: Acute Code(s): Z78.9 - OTHER SPECIFIED HEALTH STATUS SNOMED Code(s) : 002450870 Status and Disposition: Needs outpatient sleep study for ERWIN and cardio f/u. Will discharge home today
--- NOTE | 2018-02-10 00:39 | DS ---
DISCHARGE SUMMARY: DATE OF ADMISSION: 02/02/18 DATE OF DISCHARGE: 02/07/18 PROVIDER: Maricruz Collazo NP PRIMARY CARE PROVIDER: Saray Rosas MD ATTENDING PHYSICIAN: Dr. Lindsey Laird (dictated by Maricruz Collazo NP). PRIMARY DIAGNOSES: 1. Hypertension. 2. Transient episode of atrial fibrillation. 3. Atypical chest pain. SECONDARY DIAGNOSIS: Gastroesophageal reflux disease. STUDIES COMPLETED WHILE IN THE HOSPITAL: She had a nuclear stress test on 02/03/18, impression: The re was mild decreased wall motion which is most prominent at the cardiac apex with mild decreased act ivity on the anterior wall and apex on both post exercise and rest exercise imaging suggesting the po ssibility of an infarct. There is no evidence for ischemia. Assessment is low risk. She had a mckenzie sthoracic echocardiogram on 02/03/18, conclusion: The left ventricle chamber size is normal, moderat e concentric left ventricular hypertrophy, is observed the estimated ejection fraction is 50% to 55%. The endocardium is not well visualized closer to 50%. The assessment of diastolic dysfunction is n ondiagnostic. The left atrium is mildly dilated. Right atrium is moderately dilated. There is trac e evidence of mitral regurgitation. There is a physiologic tricuspid regurgitation. She had an EKG o n 02/03/18 which showed a sinus rhythm at a rate of 70. She had a chest x-ray on 02/02/18, radiologi st's impression: No evidence of acute intrathoracic disease. She had a CTA of the chest, abdomen an d pelvis, radiologist's impression: Negative for aneurysm or dissection of the abdominal aorta. No acute abdominal or pelvic pathology process is evident. She did have an ultrasound of the gallbladde r on 02/05/18, radiologist's impression: 1. Hepatosteatosis. 2. A 4-mm probable cholesterol or inflammatory polyp, gallbladder polyp 6 mm or smaller, have extrem robin low risk of malignancy and typically do not warrant followup. On occasion, polyps may actually r epresent a small gallstone adherent to the gallbladder wall at surgery. DISCHARGE MEDICATIONS: New medications: 1. Aldactone 25 mg p.o. daily. 2. Metoprolol 25 mg p.o. b.i.d. 3. Losartan 50 mg p.o. daily. 4. Baby aspirin 81 mg p.o. daily. 5. Norvasc 10 mg p.o. daily. Continued home medications: 1. Omeprazole 20 mg p.o. daily. 2. Singulair 10 mg p.o. daily. 3. Enablex 7.5 mg p.o. daily. HISTORY OF PRESENT ILLNESS AND HOSPITAL COURSE: Ms. Webster is a 52-year-old female with a history of hypertension, morbid obesity who woke last night around 1 a.m. with chest pain, not uncertain if she woke because of the pain. She describes it as sharp, across her left and right chest anteriorly rad iating into her back. There were palpitations, but no shortness of breath, nausea, vomiting or sweati ng or lightheadedness. No cough or congestion. Denied any fevers, chills, diarrhea, or any other is sues. The pain lasted for approximately 3 hours before subsiding and letting her sleep. Upon waking this morning, the discomfort was minimal, but presented continuous throughout the day, it was better sitting up and worse lying supine. No similar history. Given her presentation, we were asked to se e and evaluate and admit to the hospital for further evaluation. During her hospitalization, she had a nuclear stress test that was deemed low risk. She had a gallbladder ultrasound that showed a 4-mm possible polyp versus stone adherent to the gallbladder wall. There was no gallbladder wall thicken ing or evidence of cholecystitis. The patient also had a CTA of her chest, abdomen and pelvis which was also negative. There were no signs of aortic aneurysm or rupture. During her hospitalization, h er blood pressure was difficult to manage and she was hypertensive. We did consult Cardiology and me dications were adjusted throughout her hospitalization. They normalized by the time of discharge. H er last blood pressure was 126/83. She did have blood pressures as high as 216/119. The patient was monitored on telemetry and her blood pressure was monitored throughout her hospitaliz ation as her blood pressure medications were titrated to achieve optimal control of her blood pressur e. On the day of discharge, she states that she is feeling well. She has no complaints of chest afia n or shortness of breath. She denies any nausea, vomiting, or diarrhea. She denies any headache or dizziness. She denies feeling lightheaded. She states that she feels well. She does report a mild headache, but contributes that to wearing the CPAP machine at night and her bed. At this time, Ms. Jose Manuel swann is stable for discharge home. Ms. Webster will be discharged home today. Vital signs are as follows: Blood pressure 126/83, temper ature was 98.2, heart rate was 80, respirations 16, O2 saturation 98%. DISCHARGE PLAN: Ms. Webster will be discharged back home. Activity as tolerated. She should be place d on a low sodium heart healthy diet. 1. For hypertension, I would recommend a low sodium heart healthy diet. I would recommend 20 to 30 minutes of low intensity exercise on a daily basis. We have placed her on Norvasc 10 mg p.o. daily, metoprolol 25 mg p.o. b.i.d., Cozaar 50 mg p.o. daily, and Aldactone 25 mg p.o. daily for blood press ure control. She should continue these medications. She should follow up with Cardiology Dr. Mills in 2 to 3 weeks for further evaluation. It was also recommended that she should consider seeing Dr. Christopher Xiong in [place] who is a hypertension specialist for further evaluation. It was also re commended that she get an outpatient sleep study. She should follow up with Dr. Urbina in 1 to 2 wee ks to have a sleep study arranged. She should follow up with Dr. Elias Shelley on 02/23/18 at 2:30 p.m. She has an appointment booked. Decrease caffeine intake. Recommend monitoring her blood pressu re at home. The patient was also advised to stand up slowly if she feels dizzy or lightheaded. 2. AFib. She did have a transient episode of atrial fibrillation during the hospitalization. Her C HADS-VASc score was 2. At this time, it was not recommended to place on any anticoagulation. In the event that she has more episodes of palpitations or atrial fibrillation that should be really evalua karen. We did place her on aspirin 81 mg p.o. daily. 3. Obesity. It was recommended that she be on a low-salt, heart healthy diet with portion control t o help reduce her weight. FOLLOWUP: The patient should follow up with Dr. Elias Shelley on 02/23/18 at 2:30 as scheduled. andrae should follow up with Dr. Mills in 1 to 2 weeks. She should follow up with Dr. Urbina also in 1 t o 2 weeks for further evaluation on the sleep study. The patient was instructed to return to the emergency room for any increased chest pain or shortness of breath or any worsening of her symptoms. The patient verbalized understanding. This is a summarization of her hospitalization. For further details, please see the entire medical r ecord. TIME SPENT: Time spent on this discharge was approximately 60 minutes, greater than half that time w as spent with the patient discussing discharge plans and instructions. CONDITION ON DISCHARGE: Stable. MARICRUZ COLLAZO, HERNÁN [id number]/CPS #: [id number]
== END 2018-02-07 11:38 | disposition home or self-care (01) | DRG 201 ==
LOC: ED 19:10 → MEDTELE 22:18 → OBSVTOIN 02-03 09:30
PROVIDERS: ADMIT Hospitalist; ATTEND Internal Medicine
DX: I48.0 Paroxysmal atrial fibrillation (principal); Z68.41 Body mass index [BMI] 40.0-44.9, adult; I48.92 Unspecified atrial flutter; E66.01 Morbid (severe) obesity due to excess calories; N32.81 Overactive bladder; I16.0 Hypertensive urgency; K21.9 Gastro-esophageal reflux disease without esophagitis; R07.9 Chest pain, unspecified; J30.9 Allergic rhinitis, unspecified; Z82.49 Family history of ischemic heart disease and other diseases of the circulatory system; Z79.899 Other long term (current) drug therapy; Z88.8 Allergy status to other drugs, medicaments and biological substances; Z83.3 Family history of diabetes mellitus
CPT/HCPCS: 36415; 71045; 71275; 74174; 76705; 78452; 80048; 80053; 82384; 82530; 82565; 83605; 83735; 83880; 84484; 84520; 85025; 85610; 85730; 93005; 93017; 93306; 94660; 94760; 99285; A9270-GY; A9502; J0360; J1644; J3490; Q9967

== ENCOUNTER 2018-04-22 16:06 | Emergency (ER) | payer BC ==
[2018-04-22 16:58] LABS: ABS Basophils 0.1 10^3/ul (0-0.2); ABS Eosinophils 0.1 10^3/ul (0-0.6); ABS Lymphocytes 1.8 10^3/ul (1.0-4.8); ABS Monocytes 0.5 10^3/ul (0-0.8); ABS Neutrophils 3.3 10^3/ul (1.5-7.7); ABS Nucleated RBC 0 10^3/ul; Eosinophil % 2.2 % (0-6); Hematocrit 38 % (35-47); Mean Corpuscular HGB Conc 34 g/dl (31-36); Mean Corpuscular Hemoglobin 30 pg (27-31); Mean Corpuscular Volume 89 fL (80-97); Mean Platelet Volume 7.4 um3 (7.4-10.4); Nucleated Red Blood Cells % 0; Platelet Count 281 10^3/ul (150-450); Red Blood Count 4.29 10^6/ul (4.00-5.40); Red Cell Distribution Width 13 % (10.5-15); White Blood Count 5.8 10^3/ul (3.5-10.8)
[2018-04-22 17:13] LABS: EGFR Non-African American 68.8 (>60)
[2018-04-22] MEDS ORDERED: Iohexol 350* (CONTRAST) 500 ML MDV IV ONE (17:27)
--- NOTE | 2018-04-22 17:40 | RAD ---
INDICATION: Chest pain radiating to the back COMPARISON: Chest x-ray February 02, 2018 TECHNIQUE: Single AP portable view of the chest was obtained. FINDINGS: Image quality is compromised due to the relative inferiority of a portable chest x-ray. The heart and mediastinum exhibit normal size and contour. The lungs are grossly clear. There is no evidence of a large pleural effusion. Visualized bones are normal for the patient's age. IMPRESSION: No radiographic evidence for acute cardiopulmonary abnormality on this portable chest x-ray.
--- NOTE | 2018-04-22 18:47 | RAD ---
Indication: Aortic dissection. Contrast: Administered 100.4 ml of OMNIPAQUE 350 mg/ml CTA of the chest was performed after IV contrast administration. CTA of the abdominal aorta was also performed. The aorta demonstrates no evidence of aortic dissection. There is dilatation of the ascending aorta measuring up to 4.5 cm. This tapers to normal caliber. Mild atherosclerosis of the descending aorta is noted. The abdominal aorta demonstrates no aneurysmal dilatation. Common iliac and external iliac arteries show no evidence of aneurysmal dilatation. The origins of the great vessels are unremarkable. Small 3 to 5 mm pretracheal and right paratracheal lymph nodes are noted. The pulmonary arterial tree demonstrates no evidence of pulmonary embolus. The lung paul demonstrate no evidence of alveolar consolidation. No pleural fluid is identified. No adrenal lesions are noted. CT of the abdomen and pelvis demonstrates normal liver. Gallbladder demonstrates no calcified gallstones. No pericholecystic fluid or wall thickening is noted. The pancreas demonstrates ductal dilatation. Common duct is not dilated. No retroperitoneal lymphadenopathy is noted. No adrenal masses are noted. The kidneys demonstrate symmetric nephrograms without focal lesions. No retroperitoneal adenopathy is noted. No dilated loops of bowel are noted. The uterus and ovaries are unremarkable. The urinary bladder is unremarkable. No pelvic adenopathy is identified. The visualized abdominal organs are unremarkable. IMPRESSION: No evidence of aortic dissection is noted. No definite pulmonary embolus is noted. There is a ascending aorta dilatation measuring up to 4.5 cm in greatest dimension.
--- NOTE | 2018-04-22 20:16 | ED ---
Sarah Lau Emily, scribed for Odilon Clark on 04/22/18 at 1652 . HPI Chest Pain - HPI Summary HPI Summary: This patient is a 52 year old F presenting to [facility] with a chief complaint of mid-sternal chest tightness radiating to upper back that began earlier today. The patient rates the pain 0/10 in severity. Symptoms aggravated by nothing. Symptoms alleviated by nothing. Patient reports elevated BP. Patient denies nausea, vomiting, dizziness, and SOB. The patient reports having similar symptoms previously, and was admitted to the hospital. - History of Current Complaint Chief Complaint: EDChestPainROMI Time Seen by Provider: 04/22/18 16:42 Hx Obtained From: Patient Hx Last Menstrual Period: 08/2015 Onset/Duration: Started Hours Ago, Atraumatic, Still Present Timing: Constant, Lasting Hours Initial Severity: Mild Current Severity: Mild Pain Intensity: 0 Pain Scale Used: 0-10 Numeric Chest Pain Location: Mid Sternal Chest Pain Radiates: Yes Chest Pain Radiates To:: Back Character: Tightness Aggravating Factor(s): Nothing Alleviating Factor(s): Nothing Associated Signs and Symptoms: Positive: Other: - Positive elevated BP. Negative nausea, vomiting, dizziness, and SOB. - Additional Pertinent History Primary Care Physician: [id number] - Allergy/Home Medications Allergies/Adverse Reactions: Allergies Allergy/AdvReac Type Severity Reaction Status Date / Time lisinopril Allergy Intermediate Coughing Verified 04/22/18 16:13 amlodipine Allergy Mild Swelling Verified 04/22/18 16:13 Home Medications: Home Medications Aspirin EC TAB* [Ecotrin EC Low Dose 81 MG*] 81 mg PO DAILY 04/22/18 [History Confirmed 04/22/18] Losartan TAB* [Cozaar TAB*] 25 mg PO DAILY 04/22/18 [History Confirmed 04/22/18] Spironolactone TAB* [Aldactone TAB*] 25 mg PO DAILY 04/22/18 [History Confirmed 04/22/18] PMH/Surg Hx/FS Hx/Imm Hx Previously Healthy: No Endocrine/Hematology History: Denies: Hx Diabetes Cardiovascular History: Reports: Hx Hypertension GI History: Reports: Hx Gastroesophageal Reflux Disease History: Denies: Hx Renal Disease Sensory History: Reports: Hx Contacts or Glasses Denies: Hx Legally Blind, Hx Hearing Aid Opthamlomology History: Reports: Hx Contacts or Glasses Denies: Hx Legally Blind - Surgical History Hx Anesthesia Reactions: No Infectious Disease History: No Infectious Disease History: Denies: Traveled Outside the [place] in Last 30 Days - Family History Known Family History: Positive: Cardiac Disease - [place] brother age 57 y.o, Diabetes, Other - cancer - Social History Occupation: Employed Full-time Lives: With Family Alcohol Use: Occasionally Hx Substance Use: No Substance Use Type: Reports: None Hx Tobacco Use: No Smoking Status (MU): Never Smoked Tobacco Review of Systems Positive: Chest Pain, Other - Positive elevated BP Negative: Shortness Of Breath Negative: Vomiting, Nausea Neurological: Other - Negative dizziness All Other Systems Reviewed And Are Negative: Yes Physical Exam - Summary Physical Exam Summary: Appearance: Well appearing, no pain distress Skin: warm, dry, reflects adequate perfusion Head/face: normal Eyes: EOMI, DARIO ENT: normal Neck: supple, non-tender Respiratory: CTA, breath sounds present Cardiovascular: RRR, pulses symmetrical, mild tenderness over chest Abdomen: non-tender, soft Bowel: present Musculoskeletal: normal, strength/ROM intact Neuro: normal, sensory motor intact, A&Ox3 Triage Information Reviewed: Yes Vital Signs On Initial Exam: Initial Vitals Temp Pulse Resp BP Pulse Ox 98.2 F 86 18 173/100 99 04/22/18 16:07 04/22/18 16:07 04/22/18 16:07 04/22/18 16:07 04/22/18 16:07 Vital Signs Reviewed: Yes Diagnostics - Vital Signs Vital Signs Temp Pulse Resp BP Pulse Ox 04/22/18 16:47 99 04/22/18 16:22 84 17 96 04/22/18 16:07 98.2 F 86 18 173/100 99 - Laboratory Lab Results: Lab Results 04/22/18 04/22/18 04/22/18 Range/Units 16:44 16:44 16:44 WBC 5.8 (3.5-10.8) 10^3/ul RBC 4.29 (4.00-5.40) 10^6/ul Hgb 13.0 (12.0-16.0) g/dl Hct 38 (35-47) % MCV 89 (80-97) fL MCH 30 (27-31) pg MCHC 34 (31-36) g/dl RDW 13 (10.5-15) % Plt Count 281 (150-450) 10^3/ul MPV 7.4 (7.4-10.4) um3 Neut % (Auto) 57.0 (38-83) % Lymph % (Auto) 31.0 (25-47) % [place] % (Auto) 8.7 H (0-7) % Eos % (Auto) 2.2 (0-6) % Baso % (Auto) 1.1 (0-2) % Absolute Neuts (auto) 3.3 (1.5-7.7) 10^3/ul Absolute Lymphs (auto) 1.8 (1.0-4.8) 10^3/ul Absolute Monos (auto) 0.5 (0-0.8) 10^3/ul Absolute Eos (auto) 0.1 (0-0.6) 10^3/ul Absolute Basos (auto) 0.1 (0-0.2) 10^3/ul Absolute Nucleated RBC 0 10^3/ul Nucleated RBC % 0 Sodium 137 (135-145) mmol/L Potassium 4.4 (3.5-5.0) mmol/L Chloride 102 (101-111) mmol/L Carbon Dioxide 26 (22-32) mmol/L Anion Gap 9 (2-11) mmol/L BUN 21 (6-24) mg/dL Creatinine 0.86 (0.51-0.95) mg/dL Est GFR ( Amer) 83.2 (>60) Est GFR (Non-Af Amer) 68.8 (>60) BUN/Creatinine Ratio 24.4 H (8-20) Glucose 106 H (70-100) mg/dL Lactic Acid 1.0 (0.5-2.0) mmol/L Calcium 9.8 (8.6-10.3) mg/dL Total Bilirubin 0.40 (0.2-1.0) mg/dL AST 17 (13-39) U/L ALT 24 (7-52) U/L Alkaline Phosphatase 103 (34-104) U/L Troponin I 0.00 (<0.04) ng/mL Total Protein 7.4 (6.4-8.9) g/dL Albumin 4.3 (3.2-5.2) g/dL Globulin 3.1 (2-4) g/dL Albumin/Globulin Ratio 1.4 (1-3) Lipase 16 (11.0-82.0) U/L 04/22/18 Range/Units 19:31 WBC (3.5-10.8) 10^3/ul RBC (4.00-5.40) 10^6/ul Hgb (12.0-16.0) g/dl Hct (35-47) % MCV (80-97) fL MCH (27-31) pg MCHC (31-36) g/dl RDW (10.5-15) % Plt Count (150-450) 10^3/ul MPV (7.4-10.4) um3 Neut % (Auto) (38-83) % Lymph % (Auto) (25-47) % [place] % (Auto) (0-7) % Eos % (Auto) (0-6) % Baso % (Auto) (0-2) % Absolute Neuts (auto) (1.5-7.7) 10^3/ul Absolute Lymphs (auto) (1.0-4.8) 10^3/ul Absolute Monos (auto) (0-0.8) 10^3/ul Absolute Eos (auto) (0-0.6) 10^3/ul Absolute Basos (auto) (0-0.2) 10^3/ul Absolute Nucleated RBC 10^3/ul Nucleated RBC % Sodium (135-145) mmol/L Potassium (3.5-5.0) mmol/L Chloride (101-111) mmol/L Carbon Dioxide (22-32) mmol/L Anion Gap (2-11) mmol/L BUN (6-24) mg/dL Creatinine (0.51-0.95) mg/dL Est GFR ( Amer) (>60) Est GFR (Non-Af Amer) (>60) BUN/Creatinine Ratio (8-20) Glucose (70-100) mg/dL Lactic Acid (0.5-2.0) mmol/L Calcium (8.6-10.3) mg/dL Total Bilirubin (0.2-1.0) mg/dL AST (13-39) U/L ALT (7-52) U/L Alkaline Phosphatase (34-104) U/L Troponin I 0.00 (<0.04) ng/mL Total Protein (6.4-8.9) g/dL Albumin (3.2-5.2) g/dL Globulin (2-4) g/dL Albumin/Globulin Ratio (1-3) Lipase (11.0-82.0) U/L Result Diagrams: 04/22/18 16:44 04/22/18 16:44 Lab Statement: Any lab studies that have been ordered have been reviewed, and results considered in the medical decision making process. - Radiology CXR Radiology Interpretation Completed By: Radiologist - CXR reveals, per radiologist, no radiographic evidence for acute cardiopulmonary abnormality on this portable chest x-ray. ED physician has reviewed this radiology report. - CT CT Chest/Abdomen/Pelvis CT Interpretation Completed By: Radiologist - CT Chest/Abdomen/Pelvis reveals, per radiologist, no evidence of aortic dissection is noted. No definite pulmonary embolus is noted. There is a ascending aorta dilatation measuring up to 4.5 cm in greatest dimension. ED physician has reviewed this radiology report. - EKG 1625 Cardiac Rate: NL EKG Rhythm: Sinus Rhythm - [address] Segment: Normal Ectopy: None Chest Pain Course/Dx - Course Course Of Treatment: This patient is a 52 year old F presenting to [facility] with a chief complaint of mid-sternal chest tightness radiating to upper back that began earlier today. Physical Exam Findings: Mild tenderness over the chest CXR reveals, per radiologist, no radiographic evidence for acute cardiopulmonary abnormality on this portable chest x-ray. CT Chest/Abdomen/Pelvis reveals, per radiologist, no evidence of aortic dissection is noted. No definite pulmonary embolus is noted. There is a ascending aorta dilatation measuring up to 4.5 cm in greatest dimension. Blood work and UA obtained. In the ED course the patient was given contrast. Patient will be discharged with follow up from PCP. The patient is agreeable with this plan. - Chest Pain Differential Diagnosis/HQI/PQRI: Acute [place], ACS, Aortic Aneurysm, Lower Respiratory Infection - Diagnoses Provider Diagnoses: Thoracic aortic aneurysm, Atypical chest pain Discharge - Sign-Out/Discharge Documenting (check all that apply): Discharge/Admit/Transfer - Discharge home - Discharge Plan Condition: Stable Disposition: HOME Patient Education Materials: Chest Pain (ED), Thoracic Aortic Aneurysm (ED) Referrals: Eladio Patino MD [Primary Care Provider] - 3 Days Additional Instructions: RETURN TO THE EMERGENCY DEPARTMENT FOR NEW OR WORSENING SYMPTOMS - Billing Disposition and Condition Condition: STABLE Disposition: Home The documentation as recorded by the Sarah barreto Emily accurately reflects the service I personally performed and the decisions made by Amber mcfarland Emmanuel.
[2018-04-22 20:27] VITALS: BP 158/99
== END 2018-04-22 20:25 | disposition home or self-care (01) ==
LOC: ED 16:06
DX: I71.2 Thoracic aortic aneurysm, without rupture (principal); R07.89 Other chest pain; I10 Essential (primary) hypertension
CPT/HCPCS: 36415; 71045; 71275; 74174; 80053; 83605; 83690; 84484; 85025; 93005; 99283; Q9967

== ENCOUNTER 2021-06-23 07:30 | Observation (INO) ==
[2021-06-23 08:27] LABS: ABS Eosinophils 0.1 10^3/ul (0-0.6); ABS Lymphocytes 1.5 10^3/ul (1.0-4.8); ABS Monocytes 0.5 10^3/ul (0-0.8); ABS Neutrophils 3.8 10^3/ul (1.5-7.7); Eosinophil % 1.7 %; Hematocrit 38 % (35-47); Hemoglobin 13.2 g/dL (12.0-16.0); Lymphocyte % 25.1 %; Mean Corpuscular HGB Conc 35 g/dL (31-36); Mean Corpuscular Hemoglobin 31 pg (27-31); Mean Corpuscular Volume 91 fL (80-97); Mean Platelet Volume 7.6 fL (7.4-10.4); Platelet Count 259 10^3/uL (150-450); Red Blood Count 4.19 10^6 /uL (3.70-4.87); Red Cell Distribution Width 13 % (10-15); White Blood Count 5.9 10^3/uL (3.5-10.8)
[2021-06-23 08:44] LABS: Albumin 4.2 g/dL (3.2-5.2); Albumin/Globulin Ratio 1.6 (1-3); EGFR Non-African American 52.9 (>60); Globulin 2.7 g/dL (2-4); Magnesium 1.7 mg/dL (1.9-2.7); Potassium 4.2 mmol/L (3.5-5.0); Total Bilirubin 0.5 mg/dL (0.2-1.0); Total Protein 6.9 g/dL (6.4-8.9)
[2021-06-23] MEDS ORDERED: NS 0.9% 1000 ml BAG 1,000 ML IV ONE (09:06)
[2021-06-23] MEDS ORDERED: Iodixanol (CONTRAST) 320 MG/ML 100 ML SDV IV ONE (09:18)
[2021-06-23] MEDS ORDERED: Magnesium Sulfate 2 gm BAG 2 GM/50 ML BAG IVPB ONE (09:24)
[2021-06-23] MEDS ORDERED: Al Hydrox/Mg Hydrox/Simet LIQ 30 ML UDC PO ONE (12:57)
[2021-06-23 13:09] LABS: TSH Ultra Thyroid Stim Horm 3.02 mcIU/mL (0.34-5.60)
[2021-06-23 13:20] LABS: Folate 11.09 ng/mL (5.90-24.80)
[2021-06-23 13:48] LABS: Urine Appearance Clear; Urine Bilirubin Negative (Negative); Urine Blood Negative (Negative); Urine Color Straw; Urine Glucose Negative (Negative); Urine Ketones Negative (Negative); Urine Nitrite Negative (Negative); Urine Protein Negative (Negative); Urine Specific Gravity 1.008 (1.002-1.030); Urine Urobilinogen Negative (Negative)
[2021-06-23 14:12] LABS: Rapid COVID-19 Molecular Undetected (Undetected)
[2021-06-24 06:50] LABS: ABS Eosinophils 0.1 10^3/ul (0-0.6); ABS Lymphocytes 2.1 10^3/ul (1.0-4.8); ABS Monocytes 0.5 10^3/ul (0-0.8); ABS Neutrophils 2.4 10^3/ul (1.5-7.7); Eosinophil % 2.7 %; Hematocrit 38 % (35-47); Hemoglobin 12.9 g/dL (12.0-16.0); Lymphocyte % 40.3 %; Mean Corpuscular HGB Conc 34 g/dL (31-36); Mean Corpuscular Hemoglobin 32 pg (27-31); Mean Corpuscular Volume 92 fL (80-97); Mean Platelet Volume 7.8 fL (7.4-10.4); Platelet Count 233 10^3/uL (150-450); Red Blood Count 4.09 10^6 /uL (3.70-4.87); Red Cell Distribution Width 13 % (10-15); White Blood Count 5.1 10^3/uL (3.5-10.8)
[2021-06-24 07:00] LABS: Calcium 8.9 mg/dL (8.6-10.3); EGFR African American 72.5 (>60); EGFR Non-African American 59.9 (>60); HDL Cholesterol 41.7 mg/dL; Potassium 4.1 mmol/L (3.5-5.0)
[2021-06-24] MEDS ORDERED: DARIFENACIN 7.5 MG PO SCH ×2 (09:00→10:00)
[2021-06-24] MEDS ORDERED: Aspirin EC 81 mg TAB.EC (enteric coated) PO SCH (09:00)
[2021-06-24] MEDS ORDERED: Midazolam 5 mg/5 ml VIAL 1 mg/ml 5 ml VIAL (5 mg) ONE (11:50)
[2021-06-24] MEDS ORDERED: Naloxone 0.4 mg VIAL 0.4 mg/ml 1 ml VIAL ONE (11:50)
[2021-06-24] MEDS ORDERED: fentaNYL 100 mcg/2 ml 50 MCG/ML VIAL ONE (11:50)
[2021-06-24] MEDS ORDERED: Flumazenil 0.5 mg/5 ml 0.1 MG/ML 5 ml VIAL ONE (11:51)
[2021-06-24 16:12] VITALS: BP 130/71
== END 2021-06-24 17:24 | disposition home or self-care (01) ==
LOC: ED 07:30 → INTOOBSV 12:43 → MEDTELE 12:43
PROVIDERS: ADMIT Internal Medicine; ATTEND Internal Medicine